=== PATIENT | female | born 1945 | race Caucasian/White ===

== ENCOUNTER → 2017-03-22 | Outpatient (CLI) | payer OTHER, MEDICARE ==
[2016-10-30 13:55] VITALS: BP 132/63
[2017-03-22 12:33] LABS: BASOPHILS % (AUTO) 0.5 % (0.2-1.0); EOSINOPHILS # (AUTO) 0.1 x10^3/uL (0.0-0.2); EOSINOPHILS % (AUTO) 1.8 % (0.9-2.9); HEMATOCRIT 39.7 % (36.0-47.0); LYMPHOCYTES # (AUTO) 1.3 X10^3/uL (1.3-2.9); LYMPHOCYTES % (AUTO) 20.5 % (21.0-51.0); MEAN CORPUSCULAR HEMOGLOBIN 27.8 pg (27.0-34.0); MEAN CORPUSCULAR HGB CONC 32.8 g/dL (33.0-35.0); MEAN CORPUSCULAR VOLUME 84.9 fL (80.0-100.0); MEAN PLATELET VOLUME 9.8 fL (7.4-11.0); MONOCYTES # (AUTO) 0.4 x10^3/uL (0.3-0.8); MONOCYTES % (AUTO) 6.4 % (0.0-13.0); NEUTROPHILS # (AUTO) 4.4 x10^3/uL (2.2-4.8); NEUTROPHILS % (AUTO) 70.8 % (42.0-75.0); PLATELET COUNT 222 X10^3/uL (150.0-450.0); RED BLOOD COUNT 4.67 X10^6/uL (3.5-5.4); RED CELL DISTRIBUTION WIDTH 15.3 % (11.6-16.5); WHITE BLOOD COUNT 6.2 X10^3/uL (3.6-10.0)
[2017-03-22 12:44] LABS: BILIRUBIN,URINE NEGATIVE (NEGATIVE); BLOOD/HEMOGLOBIN,URINE NEGATIVE (NEGATIVE); GLUCOSE, URINE NEGATIVE (NEGATIVE); KETONES,URINE NEGATIVE (NEGATIVE); LEUKOCYTE ESTERASE ,URINE NEGATIVE (NEGATIVE); NITRITES,URINE NEGATIVE (NEGATIVE); PROTEIN,URINE NEGATIVE (NEGATIVE); UROBILINOGEN,URINE NORMAL (NORMAL)
[2017-03-22 12:52] LABS: APPEARANCE,URINE CLEAR (CLEAR); BACTERIA,URINE TRACE /HPF (NEGATIVE); COLOR,URINE YELLOW (YELLOW); RBC,URINE 0 /HPF (NEGATIVE); SQUAMOUS EPITHELIAL CELL,UR RARE /HPF (NEGATIVE)
[2017-03-22 12:52] LABS: ALANINE AMINOTRANSFERASE 27 Units/L (12-78); ALBUMIN 3.7 g/dL (3.4-5.0); ALKALINE PHOSPHATASE 136 Units/L (46-116); ASPARTATE AMINO TRANSFERASE 23 Units/L (15-37); BLOOD UREA NITROGEN 16 mg/dL (7-18); CALCIUM 9.3 mg/dL (8.5-10.1); CARBON DIOXIDE 25.5 mmol/L (21-32); CHLORIDE 108 mmol/L (98-107); CREATININE 1.07 mg/dL (0.55-1.02); GLUCOSE 107 mg/dL (65-99); SODIUM 144 mmol/L (136-145); TOTAL PROTEIN 7.3 g/dL (6.4-8.2); eGFR BLACK RACES > 60 (>60); eGFR NON BLACK RACES 54 (>60)
--- NOTE | 2017-03-22 13:48 | RAD ---
HISTORY: Preop for spinal stimulator Study: PA and lateral views of the chest. Comparison: 10/16/2016 Findings: The cardiomediastinal silhouette is normal. No focal consolidations, pleural effusions or pneumothor ax. Osseous structures demonstrate no acute abnormality. Bilateral hyperexpansion. IMPRESSION: 1. No acute cardiopulmonary process. 2. Findings consistent with COPD. Reported By:
== END ==
LOC: LAB 10:51
PROVIDERS: ATTEND Specialist
DX: Z01.818 Encounter for other preprocedural examination (principal); Z01.810 Encounter for preprocedural cardiovascular examination; Z01.811 Encounter for preprocedural respiratory examination; Z79.899 Other long term (current) drug therapy; Z11.8 Encounter for screening for other infectious and parasitic diseases; M96.1 Postlaminectomy syndrome, not elsewhere classified
CPT/HCPCS: 36415; 71020; 80053; 81001; 85025; 87641; 93005; 93010

== ENCOUNTER 2017-03-28 07:35 | Day surgery (SDC) | payer OTHER, MEDICARE ==
[2017-03-28] MEDS ORDERED: NS 50 ML IV + SPIKE MINIBAG* 50 ML IV ONE (07:59)
[2017-03-28] MEDS ORDERED: D5 LR 1000 ML 1,000 ML IV ONE (07:59)
[2017-03-28] MEDS ORDERED: ANCEF VIAL 1 GM ONE (07:59)
[2017-03-28] MEDS ORDERED: MARCAINE 0.25% WITH EPI IJ ONE (09:28)
[2017-03-28] MEDS ORDERED: MARCAINE 0.25% INJ ONE (09:28)
[2017-03-28] MEDS ORDERED: XYLOCAINE 1 % (PLAIN) ONE (09:30)
[2017-03-28 11:52] VITALS: BP 168/74
== END 2017-03-28 11:24 | disposition home or self-care (01) | DRG 520 ==
LOC: SURG1 07:35
PROVIDERS: ATTEND Specialist
PROC: 4B01XVZ Measurement of Peripheral Nervous Stimulator, External Approach (ICD-10-PCS; principal; 2017-03-28 11:15)
PROC: 00HU3MZ Insertion of Neurostimulator Lead into Spinal Canal, Percutaneous Approach (ICD-10-PCS; principal; 2017-03-28 11:15)
DX: M54.5 Low back pain (principal); M79.604 Pain in right leg
CPT/HCPCS: 76000; A4222; S0020; J0690; J2001; J7120

== ENCOUNTER → 2017-05-10 | Outpatient (CLI) | payer OTHER, MEDICARE ==
[2017-05-10 11:23] LABS: BASOPHILS % (AUTO) 0.6 % (0.2-1.0); EOSINOPHILS # (AUTO) 0.1 x10^3/uL (0.0-0.2); EOSINOPHILS % (AUTO) 2.6 % (0.9-2.9); HEMATOCRIT 38.8 % (36.0-47.0); LYMPHOCYTES % (AUTO) 18.5 % (21.0-51.0); MEAN CORPUSCULAR HEMOGLOBIN 28.9 pg (27.0-34.0); MEAN CORPUSCULAR HGB CONC 33.5 g/dL (33.0-35.0); MEAN CORPUSCULAR VOLUME 86.3 fL (80.0-100.0); MONOCYTES # (AUTO) 0.4 x10^3/uL (0.3-0.8); NEUTROPHILS % (AUTO) 71.3 % (42.0-75.0); PLATELET COUNT 229 X10^3/uL (150.0-450.0); RED CELL DISTRIBUTION WIDTH 14.3 % (11.6-16.5); WHITE BLOOD COUNT 5.6 X10^3/uL (3.6-10.0)
[2017-05-10 11:24] LABS: BILIRUBIN,URINE NEGATIVE (NEGATIVE); BLOOD/HEMOGLOBIN,URINE NEGATIVE (NEGATIVE); GLUCOSE, URINE NEGATIVE (NEGATIVE); KETONES,URINE NEGATIVE (NEGATIVE); LEUKOCYTE ESTERASE ,URINE NEGATIVE (NEGATIVE); NITRITES,URINE NEGATIVE (NEGATIVE); PROTEIN,URINE NEGATIVE (NEGATIVE); UROBILINOGEN,URINE NORMAL (NORMAL)
[2017-05-10 11:29] LABS: ALANINE AMINOTRANSFERASE 24 Units/L (12-78); ALBUMIN 3.4 g/dL (3.4-5.0); ALKALINE PHOSPHATASE 135 Units/L (46-116); ASPARTATE AMINO TRANSFERASE 16 Units/L (15-37); BLOOD UREA NITROGEN 23 mg/dL (7-18); CALCIUM 8.7 mg/dL (8.5-10.1); CARBON DIOXIDE 25.9 mmol/L (21-32); CHLORIDE 109 mmol/L (98-107); CREATININE 0.98 mg/dL (0.55-1.02); GLUCOSE 92 mg/dL (65-99); SODIUM 146 mmol/L (136-145); TOTAL PROTEIN 6.8 g/dL (6.4-8.2); eGFR BLACK RACES > 60 (>60); eGFR NON BLACK RACES 60 (>60)
[2017-05-10 11:33] LABS: APPEARANCE,URINE CLEAR (CLEAR); BACTERIA,URINE NEGATIVE /HPF (NEGATIVE); COLOR,URINE YELLOW (YELLOW); RBC,URINE NONE SEEN /HPF (NEGATIVE); SQUAMOUS EPITHELIAL CELL,UR RARE /HPF (NEGATIVE)
--- NOTE | 2017-05-10 11:33 | RAD ---
HISTORY: Preop spinal stimulator Study: Chest two-view Comparison: March 22, 2017 Findings: The heart is mildly enlarged. No congestive heart failure is noted. The lungs are hyperinflated. No acute alveolar infiltrates are identified. No pleural effusions are present. The bony thorax is unre markable. Postsurgical changes are present in both shoulders likely prior rotator cuff surgery. IMPRESSION: Cardiomegaly without congestive heart failure Lungs hyperinflated but clear Reported By:
== END ==
LOC: LAB 10:31
PROVIDERS: ATTEND Specialist
DX: Z01.818 Encounter for other preprocedural examination (principal); Z01.810 Encounter for preprocedural cardiovascular examination; Z01.811 Encounter for preprocedural respiratory examination; Z79.899 Other long term (current) drug therapy; Z11.8 Encounter for screening for other infectious and parasitic diseases; M96.1 Postlaminectomy syndrome, not elsewhere classified
CPT/HCPCS: 36415; 71020; 80053; 81001; 85025; 87641; 93005; 93010

== ENCOUNTER 2017-05-16 08:42 | Day surgery (SDC) | payer OTHER, MEDICARE ==
[2017-05-16] MEDS ORDERED: D5 LR 1000 ML 1,000 ML IV ONE (09:03)
[2017-05-16] MEDS ORDERED: NS 50 ML IV + SPIKE MINIBAG* 50 ML IV ONE (09:03)
[2017-05-16] MEDS ORDERED: ANCEF VIAL 1 GM ONE (09:04)
[2017-05-16] MEDS ORDERED: FENTANYL INJ 100 mcg ONE (11:03)
[2017-05-16] MEDS ORDERED: NS IRRIGATION 1000 ML 1,000 ML with BACITRACIN VIAL 50,000 UNT IR ONE ×2 (12:01)
[2017-05-16] MEDS ORDERED: MARCAINE 0.25% WITH EPI IJ ONE (12:01)
[2017-05-16] MEDS ORDERED: PHENERGAN INJ 25 MG IVP PRN (13:17)
[2017-05-16] MEDS ORDERED: ZOFRAN INJ 4 MG VIAL IVP PRN (13:17)
[2017-05-16] MEDS ORDERED: BENADRYL INJ 50 MG VIAL IVP PRN (13:17)
[2017-05-16] MEDS ORDERED: DILAUDID INJ IVP PRN (13:17)
[2017-05-16] MEDS ORDERED: REGLAN INJ 10 MG VIAL IVP PRN (13:17)
[2017-05-16] MEDS ORDERED: DILAUDID INJ ONE (13:22)
[2017-05-16 15:11] VITALS: BP 137/68
[2017-05-16] MEDS ORDERED: EPHEDRINE SULFATE INJ ONE (15:46)
[2017-05-16] MEDS ORDERED: NEOSTIGMINE INJ ONE (15:46)
[2017-05-16] MEDS ORDERED: LTA KIT LIDOCAINE 4% ONE (15:46)
[2017-05-16] MEDS ORDERED: VERSED ONE (15:46)
[2017-05-16] MEDS ORDERED: QUELICIN (OR ANECTINE) ONE (15:46)
[2017-05-16] MEDS ORDERED: NORCURON INJ 10 MG VIAL ONE (15:46)
[2017-05-16] MEDS ORDERED: DIPRIVAN VIAL ONE (15:46)
== END 2017-05-16 15:05 | disposition home or self-care (01) | DRG 518 ==
LOC: SURG1 08:42
PROVIDERS: ATTEND Specialist
PROC: 00HU0MZ Insertion of Neurostimulator Lead into Spinal Canal, Open Approach (ICD-10-PCS; 2017-05-16)
PROC: 4B00XVZ Measurement of Central Nervous Stimulator, External Approach (ICD-10-PCS; 2017-05-16)
PROC: 0JH70BZ Insertion of Single Array Stimulator Generator into Back Subcutaneous Tissue and Fascia, Open Approach (ICD-10-PCS; principal; 2017-05-16 08:30)
DX: M96.1 Postlaminectomy syndrome, not elsewhere classified (principal)
CPT/HCPCS: 76000; 99100; A4222; S0020; J0330; J0690; J1170; J2250; J2710; J3010; J3490; J7120

== ENCOUNTER → 2018-01-24 | Outpatient (CLI) | payer OTHER, MEDICARE ==
[2018-01-24 13:56] LABS: BASOPHILS % (AUTO) 0.6 % (0.2-1.0); EOSINOPHILS # (AUTO) 0.2 x10^3/uL (0.0-0.2); EOSINOPHILS % (AUTO) 2.6 % (0.9-2.9); HEMATOCRIT 37.7 % (36.0-47.0); HEMOGLOBIN 12.6 g/dL (12.0-16.0); LYMPHOCYTES # (AUTO) 1.3 X10^3/uL (1.3-2.9); LYMPHOCYTES % (AUTO) 18.7 % (21.0-51.0); MEAN CORPUSCULAR HEMOGLOBIN 27.5 pg (27.0-34.0); MEAN CORPUSCULAR HGB CONC 33.5 g/dL (33.0-35.0); MEAN CORPUSCULAR VOLUME 82.1 fL (80.0-100.0); MEAN PLATELET VOLUME 9.6 fL (7.4-11.0); MONOCYTES # (AUTO) 0.5 x10^3/uL (0.3-0.8); MONOCYTES % (AUTO) 7.7 % (0.0-13.0); NEUTROPHILS % (AUTO) 70.4 % (42.0-75.0); PLATELET COUNT 224 X10^3/uL (150.0-450.0); RED BLOOD COUNT 4.59 X10^6/uL (3.5-5.4); RED CELL DISTRIBUTION WIDTH 15.3 % (11.6-16.5); WHITE BLOOD COUNT 7.1 X10^3/uL (3.6-10.0)
[2018-01-24 14:05] LABS: BILIRUBIN,URINE NEGATIVE (NEGATIVE); BLOOD/HEMOGLOBIN,URINE NEGATIVE (NEGATIVE); GLUCOSE, URINE NEGATIVE (NEGATIVE); KETONES,URINE NEGATIVE (NEGATIVE); LEUKOCYTE ESTERASE ,URINE 1+ (NEGATIVE); NITRITES,URINE NEGATIVE (NEGATIVE); PROTEIN,URINE NEGATIVE (NEGATIVE); UROBILINOGEN,URINE NORMAL (NORMAL)
[2018-01-24 14:06] LABS: APPEARANCE,URINE CLEAR (CLEAR); BACTERIA,URINE TRACE /HPF (NEGATIVE); COLOR,URINE YELLOW (YELLOW); RBC,URINE 0-2 /HPF (NONE SEEN); SQUAMOUS EPITHELIAL CELL,UR RARE /HPF (NEGATIVE)
[2018-01-24 14:07] LABS: ALANINE AMINOTRANSFERASE 26 Units/L (12-78); ALBUMIN 3.6 g/dL (3.4-5.0); ALKALINE PHOSPHATASE 143 Units/L (46-116); ASPARTATE AMINO TRANSFERASE 19 Units/L (15-37); BLOOD UREA NITROGEN 22 mg/dL (7-18); CALCIUM 8.7 mg/dL (8.5-10.1); CARBON DIOXIDE 25.6 mmol/L (21-32); CHLORIDE 105 mmol/L (98-107); COR NA(FOR HYPERGLY) 141 mmol/L (136-145); SODIUM 141 mmol/L (136-145); TOTAL PROTEIN 7.3 g/dL (6.4-8.2); eGFR BLACK RACES > 60 (>60); eGFR NON BLACK RACES 58 (>60)
[2018-01-24 14:31] LABS: ERYTHROCYTE SEDIMENTATION RATE 23 MM/HOUR (0-20)
--- NOTE | 2018-01-25 06:37 | RAD ---
HISTORY: Preop spinal stimulator removal Study: Chest PA and lateral Comparison: 05/10/17 Findings: The heart is mildly enlarged. No congestive heart failure is noted. The ken[place] are normal. The lungs ar e well inflated and free of acute alveolar infiltrates. No pleural effusions are identified. The bony thorax is unremarkable with the exception of postsurgical change years in both shoulders. There is a spinal stimulator at the mid thoracic level. IMPRESSION: Mild cardiomegaly without congestive heart failure Lungs clear Reported By:
== END | disposition home or self-care (01) | DRG 951 ==
LOC: LAB 13:16
PROVIDERS: ATTEND Orthopaedic Surgery
DX: Z01.818 Encounter for other preprocedural examination (principal); Z79.899 Other long term (current) drug therapy; Z11.8 Encounter for screening for other infectious and parasitic diseases; Z01.811 Encounter for preprocedural respiratory examination; Z01.810 Encounter for preprocedural cardiovascular examination; M96.1 Postlaminectomy syndrome, not elsewhere classified; I51.7 Cardiomegaly
CPT/HCPCS: 36415; 71046; 80053; 81001; 85025; 85652; 86140; 87640; 87641

== ENCOUNTER 2018-01-30 11:44 | Day surgery (SDC) | payer OTHER, MEDICARE ==
[~2018-01-30 11:44] MED LIST: DIPRIVAN VIAL ONE; VERSED ONE
[2018-01-30] MEDS ORDERED: ANCEF 1 GM IV PREMIX* 1 GM/50 ML BAG IV ONE (12:06)
[2018-01-30] MEDS ORDERED: D5 LR 1000 ML 1,000 ML IV ONE (12:06)
[2018-01-30] MEDS ORDERED: FENTANYL INJ 100 mcg ONE (14:00)
[2018-01-30] MEDS ORDERED: NS IRRIGATION 1000 ML 1,000 ML with BACITRACIN VIAL 50,000 UNT IR ONE ×2 (14:10)
[2018-01-30] MEDS ORDERED: BACITRACIN VIAL ONE (14:13)
[2018-01-30] MEDS ORDERED: MARCAINE 0.25% INJ ONE (14:31)
[2018-01-30] MEDS ORDERED: ZOFRAN INJ 4 MG VIAL IVP PRN (14:51)
[2018-01-30] MEDS ORDERED: PERCOCET TAB 5/325 MG PO PRN (14:51)
[2018-01-30 15:49] VITALS: BP 145/76
== END 2018-01-30 15:46 | disposition home or self-care (01) | DRG 93 ==
LOC: SURG1 11:44
PROVIDERS: ATTEND Orthopaedic Surgery
PROC: 0JPT0MZ Removal of Stimulator Generator from Trunk Subcutaneous Tissue and Fascia, Open Approach (ICD-10-PCS; principal; 2018-01-30 08:30)
DX: T85.192A Other mechanical complication of implanted electronic neurostimulator of spinal cord electrode (lead), initial encounter (principal)
CPT/HCPCS: A4222; S0020; J0690; J2250; J3010; J3490; J7120